=== PATIENT | male | born 2000 | race Asian ===

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

== ENCOUNTER 2019-03-14 14:16 | Outpatient (CLI) | payer OTHER | END 2019-03-14 14:27 | disposition short-term general hospital (02) | LOC: AMB 14:16 | DX: L02.31 Cutaneous abscess of buttock (principal) | CPT/HCPCS: A0425; A0429 ==

== ENCOUNTER 2019-03-14 14:30 | Emergency (ER) | payer OTHER ==
[~2019-03-14] VITALS: Ht 167.6 cm; Wt 50.8 kg
[2019-03-14 15:41] VITALS: BP 134/62; TEMP 98.3
== END 2019-03-14 15:46 | disposition home or self-care (01) ==
LOC: ED 14:30
DX: L02.31 Cutaneous abscess of buttock (principal)
CPT/HCPCS: 96372; 99282; 99283; J0696; J1885

== ENCOUNTER 2021-01-23 12:15 | Emergency (ER) | payer OTHER ==
[~2021-01-23] VITALS: Ht 167.6 cm; Wt 52.6 kg
[2021-01-23 12:25] VITALS: TEMP 98.2
[2021-01-23 13:38] VITALS: BP 133/66
== END 2021-01-23 13:39 | disposition home or self-care (01) ==
LOC: ED 12:15
PROC: 0HQCXZZ Repair Left Upper Arm Skin, External Approach (ICD-10-PCS; principal; 2021-01-23)
DX: S41.112A Laceration without foreign body of left upper arm, initial encounter (principal); W25.XXXA Contact with sharp glass, initial encounter; Y92.89 Other specified places as the place of occurrence of the external cause
CPT/HCPCS: 99283

== ENCOUNTER 2021-01-29 06:59 | Emergency (ER) | payer OTHER | END 2021-01-29 07:35 | disposition home or self-care (01) | LOC: ED 06:59 | DX: Z48.02 Encounter for removal of sutures (principal) ==

== ENCOUNTER 2023-03-03 21:04 | Emergency (ER) | payer OTHER ==
[~2023-03-03] VITALS: Ht 167.6 cm; Wt 51.3 kg
[2023-03-03 22:31] VITALS: BP 126/70; TEMP 97.2
== END 2023-03-03 22:31 | disposition home or self-care (01) ==
LOC: ED 21:04
DX: K08.89 Other specified disorders of teeth and supporting structures (principal); K05.10 Chronic gingivitis, plaque induced; F19.10 Other psychoactive substance abuse, uncomplicated; F17.210 Nicotine dependence, cigarettes, uncomplicated; F12.90 Cannabis use, unspecified, uncomplicated
CPT/HCPCS: 96372; 99282; J1885